=== PATIENT | female | born 1985 | race Hispanic/Latino ===

== ENCOUNTER 2017-05-28 11:31 | Outpatient (CLI) | payer OTHER ==
[2017-05-28 13:19] LABS: BHCG - Serum Negative (NEGATIVE); Pregs Control Background? CLEAR/WHITE (CLR/WHITE); Pregs Control Bar Appear? YES (CONTROL BAR)
== END 2017-05-28 11:32 | disposition home or self-care (01) ==
LOC: LABBT 11:31
PROVIDERS: ATTEND Orthopaedic Surgery
DX: Z01.812 Encounter for preprocedural laboratory examination (principal); M67.431 Ganglion, right wrist
CPT/HCPCS: 84703

== ENCOUNTER 2017-05-30 05:53 | Day surgery (SDC) | payer OTHER ==
[2017-05-28 12:04] VITALS: BMI 18.8
--- NOTE | 2017-05-28 23:30 | HP ---
DATE OF ADMISSION: 05/30/2017 HISTORY OF PRESENT ILLNESS: The patient is a 31-year-old female with a several month history of a pa inful mass on the dorsum of her right wrist, which has gradually increased in size. There has been n o injury. Her symptoms have been aggravated by picking up her young son, pushing a stroller, and als o turning the steering wheel. PAST MEDICAL HISTORY: The patient is otherwise in good health. Her child is approximately one year of age, and she has recently stopped breast feeding. She has no major medical problems, normally herson es no routine medications and has no known allergies. FAMILY HISTORY, SOCIAL HISTORY, AND REVIEW OF SYSTEMS: Otherwise unremarkable. PHYSICAL EXAMINATION: GENERAL: Reveals a healthy female. HEENT: Unremarkable. NECK: Supple. CHEST: Clear. HEART: Regular rate and rhythm. ABDOMEN: Soft, nontender. PELVIC/RECTAL/BREAST EXAMS: Deferred. EXTREMITIES: Pertinent findings of the the right wrist. There is a 1 x 1 cm firm cystic mass on the dorsal radial aspect of the right wrist, which is mildly tender. There is full range of motion of t he wrist. There is no crepitus or instability. There is no bony tenderness. NEUROVASCULAR EXAM: Intact, palpable distal pulses. IMAGING: X-rays of the right wrist reveal no bony abnormalities. IMPRESSION: Dorsal carpal ganglion, right wrist. PLAN: Surgical excision. The nature of the surgery, length of recovery, and potential complications such as infection, loss of motion, incomplete relief, neurovascular injury, recurrence, and need for additional or repeat surgery have been discussed in detail.
[2017-05-30] MEDS ORDERED: CEFAZOLIN/Water 2 GM/20 ML SYRINGE ONE (06:32)
[2017-05-30] MEDS ORDERED: Midazolam HCl 2 mg/2 ml Vial ONE (06:36)
[2017-05-30] MEDS ORDERED: Fentanyl 100 MCG/2 ML VIAL ONE (06:36)
[2017-05-30] MEDS ORDERED: Bupivacaine PF 0.5% 30 ML VIAL ONE (06:59)
[2017-05-30] MEDS ORDERED: Lidocaine 1% w/Epinephrine 1:200K 30 ML VIAL ONE (07:34)
[2017-05-30] MEDS ORDERED: Promethazine HCl 25 MG/ML VIAL IM/IV PRN (09:13)
[2017-05-30] MEDS ORDERED: Non-Formulary Medication 1 EACH PO PRN (09:13)
[2017-05-30] MEDS ORDERED: Ondansetron HCl/PF 4 MG/2 ML Vial IVP PRN (09:13)
--- NOTE | 2017-05-30 10:07 | OP ---
DATE OF SURGERY: 05/30/2017 SURGEON: Harshal Ochoa M.D. ANESTHESIA: General. PREOPERATIVE DIAGNOSIS: Dorsal carpal ganglion, right wrist. POSTOPERATIVE DIAGNOSIS: Dorsal carpal ganglion, right wrist. PROCEDURE PERFORMED: Excision of dorsal carpal ganglion, right wrist. NARRATIVE REPORT: After satisfactory anesthesia was induced in supine position, the patient was prep ped and draped in the routine manner. Right arm was elevated, exsanguinated with an Esmarch bandage, and the tourniquet inflated to 200 mmHg. A 2.5 cm transverse incision was made over the palpable ma ss in the dorsum of the right wrist, carried down to subcutaneous tissues. Bleeding points controlle d with cautery. Extensor retinaculum was incised and the mass was identified. The extensor tendon w as retracted medially and laterally. Using sharp and blunt dissection, the mass was excised in its e ntirety along with a window of the dorsal wrist capsule and sent to pathology. There appeared to be complete excision of the mass. The wound was thoroughly irrigated and infiltrated with 10 mL of 0.5% Marcaine with epinephrine. Subcutaneous tissue was closed with interrupted 3-0 Vicryl and the skin closed with running subcuticular 3-0 nylon. Sterile bulky compressive dressing was applied and the p atient immobilized in a volar plaster splint. The tourniquet was deflated after 21 minutes. The miles d promptly pinked up and the patient was awakened and taken to recovery room in stable condition. Th ere were no apparent intraoperative complications. The estimated blood loss was negligible. The patient will be discharged home in satisfactory condition. He was instructed in ice, elevation, and given written cast care instructions. She was given a prescription for [place] 5 for pain, 30 tabl ets and will be rechecked in my office in approximately 2 weeks or sooner if there are any problems p rior to that time.
[2017-05-30] MEDS ORDERED: Lidocaine 1% PF 5 ML VIAL ONE (15:00)
[2017-05-30] MEDS ORDERED: diphenhydrAMINE 50 MG/ML VIAL ONE (15:00)
[2017-05-30] MEDS ORDERED: Dexamethasone 20 MG/5 ML VIAL ONE (15:00)
[2017-05-30] MEDS ORDERED: Ondansetron HCl/PF 4 MG/2 ML Vial ONE (15:00)
[2017-05-30] MEDS ORDERED: Propofol 200 MG/20 ML VIAL ONE (15:00)
[2017-05-30] MEDS ORDERED: Metoclopramide HCl 10 MG/2 ML VIAL ONE (15:00)
[2017-05-30] MEDS ORDERED: Ketorolac Tromethamine 30 MG/ML VIAL ONE (15:00)
== END 2017-05-30 10:00 | disposition home or self-care (01) ==
LOC: SDC 05:53
PROVIDERS: ATTEND Orthopaedic Surgery
PROC: 0LB50ZZ Excision of Right Lower Arm and Wrist Tendon, Open Approach (ICD-10-PCS; principal; 2017-05-30)
DX: M67.431 Ganglion, right wrist (principal)
CPT/HCPCS: 88304; J0131; J1100; J1200; J1885; J2001; J2250; J2405; J2704; J2765; J3010; S0020